=== PATIENT | male | born 1950 | race Caucasian/White ===

== ENCOUNTER 2021-03-21 09:52 | Emergency (ER) | payer MEDICARE ==
[~2021-03-21] VITALS: Ht 175.3 cm; Wt 127.3 kg
[2021-03-21 12:56] VITALS: BP 142/81
[2021-03-21 15:12] LABS: APPEARANCE,URINE CLEAR (CLEAR); BILIRUBIN,URINE NEGATIVE (NEGATIVE); GLUCOSE, URINE (UA) NEGATIVE (NEGATIVE); KETONES,URINE NEGATIVE (NEGATIVE); LEUKOCYTE ESTERASE ,URINE NEGATIVE (NEGATIVE); NITRATE,URINE NEGATIVE (NEGATIVE); OCCULT BLOOD,URINE LARGE (NEGATIVE); PH,URINE 5.5 (5.0-8.0); PROTEIN,URINE SEE CONFIRM (NEGATIVE); UROBILINOGEN,URINE 0.2 mg/dL (<=1.0)
[2021-03-21 15:14] LABS: BACTERIA,URINE None Seen /HPF (None Seen); RBC,URINE 26-50 /HPF (0-2); SULFOSALICYLIC ACID,URINE 2+ (Negative); WBC,URINE None Seen /HPF (0-5)
== END 2021-03-21 13:09 | disposition home or self-care (01) ==
LOC: EMS 10:00
DX: R33.9 Retention of urine, unspecified (principal); K59.00 Constipation, unspecified
CPT/HCPCS: 51702; 81001; 81002; 99283; 99284